=== PATIENT | male | born 1985 | race Caucasian/White ===

== ENCOUNTER 2022-02-13 18:19 | Emergency (ER) | payer MEDICAID ==
[~2022-02-13] VITALS: Ht 172.7 cm; Wt 90.9 kg
[2022-02-13 18:31] VITALS: BP 152/87
== END 2022-02-13 19:55 | disposition home or self-care (01) ==
LOC: EMS 18:23
DX: Z20.828 Contact with and (suspected) exposure to other viral communicable diseases (principal); F15.10 Other stimulant abuse, uncomplicated; F17.210 Nicotine dependence, cigarettes, uncomplicated
CPT/HCPCS: 99281; Z7502